=== PATIENT | female | born 1945 | race Caucasian/White ===

== ENCOUNTER → 2023-07-30 11:47 | Outpatient (CLI) | payer OTHER, SELFPAY ==
--- NOTE | 2023-07-30 12:41 | DI.MRI.S_ITS ---
BREAST MRI OF BOTH BREASTS: 07/30/2023 CLINICAL: Breast cancer. Comparison is made to exams dated: 09/06/2020 mammogram, 03/21/2023 mammogram, 05/25/2023 mammogram, and 06/19/2023 stereotactic biopsy - [facility]. 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 Precontrast axial STIR and 3D FLASH without fat saturation sequences were obtained. Both before and after bolus injection of contrast, sequential 1-minute axial 3D FLASH with fat saturation sequences for 3 time points, with subtraction images and maximum intensity projections (MIP's) generated. Delayed sagittal FLASH images with fat saturation were also obtained. Computer-aided detection, including computer algorithm analysis of MRI image data for lesion detection and characterization, pharmacokinetic analysis, with further physician review for interpretation, was performed. FINDINGS: Image quality: Excellent. There is minimal background parenchymal enhancement. There is scattered fibroglandular elements in both breasts. Right breast: No suspicious mass or abnormal non-mass enhancement. No axillary or internal mammary lymphadenopathy. Left breast: Remote prior postsurgical changes are seen at the lower outer quadrant of the left breast posterior depth. Surgical clips are also seen in the left axillary tail region and left axilla. Biopsy cavity is seen in the left breast 1 o'clock position anterior depth with surrounding enhancement, corresponding to the recent biopsy with pathology results demonstrating DCIS. The area of peripheral enhancement measures approximately 1.3 cm in anterior-posterior dimension by 1.1 cm transverse (64/6) by 1.6 cm craniocaudal (101/18). Subtle non-mass enhancement is seen along the anterior superomedial margin of the biopsy cavity measuring up to 2.3 cm in length (60/6). The non-mass enhancement demonstrates rapid enhancement with delayed washout. Enhancement surrounding the biopsy cavity demonstrates progressive delayed enhancement. Additionally, there is an area of linear non-mass enhancement in the lower outer quadrant of the left breast just anterior to the prior surgical site measuring up to 4.1 cm in length (46/6). Kinetic curve assessment demonstrates moderate early enhancement and progressive delayed enhancement. No corresponding calcifications or focal abnormality is seen on the prior mammograms from 03/21/2023 and 05/25/2023. No significant left axillary or internal mammary lymphadenopathy is seen. Miscellaneous: Included portions of the anterior chest wall and upper abdomen demonstrate no significant abnormality. IMPRESSION: SUSPICIOUS OF MALIGNANCY 1. 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 Non-mass enhancement adjacent to the biopsy cavity measures up to 2.3 cm in length. 2. Linear non-mass enhancement in the left breast lower outer quadrant posterior depth just anterior to the prior lumpectomy site measuring 4.1cm in length. No correlate is seen on prior mammogram. Recommend MR guided biopsy for further evaluation if it will change the surgical management. 3. Postsurgical changes are seen in the left axilla. No significant axillary or internal mammary lymphadenopathy is seen. BIRADS 4: Suspicious of malignancy. Recommend MR-guided biopsy of the linear non-mass enhancement at the lower outer quadrant of the left breast if it will change the surgical management. This exam was interpreted at Station ID: [id number]. Electronically Signed By: Cesar Reese M.D. ar/:07/31/2023 08:38:52 letter sent: Biopsy Required ACR BI-RADS Category 4: Suspicious abnormality [id number]
== END ==
LOC: MRI 11:48
PROVIDERS: PCP Nurse Practitioner; Referring Provider Surgery; Visit Provider Surgery
DX: D05.12 Intraductal carcinoma in situ of left breast (principal)
CPT/HCPCS: 77049; A9579